=== PATIENT | female | born 1995 | race Caucasian/White ===

== ENCOUNTER 2020-03-19 21:03 | Inpatient (IN) ==
[2020-03-19] MEDS ORDERED: miSOPROStoL 50 MCG TAB PO PRN (21:59)
[2020-03-19] MEDS ORDERED: OXYTOCIN 30 UNITS/500 ML BAG IV PRN ×2 (21:59→22:09)
--- NOTE | 2020-03-19 22:04 | History & Physical Report ---
Date of Service March 19, 2020 Assessment & Plan (1) Supervision of normal first : - heart rate seeing category 1 with accelerations and variability -Rupture of membranes with minimal uterine activity -Discussed with patient and her -Recommend Cytotec 50 mcg p.o. every 4 hours as needed to induce contractions -All questions answered. History of Present Illness Chief Complaint: ROM Primary Care Provider: NO PCP The patient is a 24-year-old 1 para 0, EDC of 25 March, at 39+ weeks gestational age who presents to labor and delivery with spontaneous rupture of membranes. Patient states membranes ruptured at approximately 2000 hrs. on day of admission. Patient has been having prodromal contractions for the last 12 hours. The patient has had a benign course. Her blood type is O-, antibody negative, she received RhoGam on 12 January, hepatitis B, rubella immune, negative cystic fibrosis and SMA screen, negative cell free DNA screen, normal 1 hour Glucola x2, and a negative third trimester beta strep culture. Allergies Allergy/AdvReac Type Severity Reaction Status Date / Time No Known Drug Allergies Allergy Verified 03/13/20 09:44 Home Medications Home Medications Medication Instructions Recorded Confirmed Type Breast pump #1 ea 12/30/19 03/13/20 Rx ferrous sulfate [iron] 325 mg PO DAILY 03/19/20 03/19/20 History vit no.[id number] 1 tab PO DAILY 03/19/20 03/19/20 History [ Vitamin] Patient History Medical History (Updated 01/20/20 @ 11:30 by Lev Jo Jr, MD, FACOG) ADHD Encounter for anatomic survey No significant past medical history Varicella vaccine Family History (Updated 08/19/19 @ 13:14 by Kecia Castillo) Mother Schizo affective schizophrenia Aneurysm Grandmother Aneurysm Aunt Aneurysm Bipolar disorder Diabetes Father Mental illness in member of household Uncle Liver failure Social History (Updated 08/19/19 @ 13:33 by Kecia Castillo) Preferred Language: Filipino Communication Ability: Effective Strike Plate Attacher Required: No Beliefs That Will Affect Care: None marital status: marital status details: Eldon Berg (28) [phone] Current Living Situation: Spouse Current Living Situation Comment: lives with spouse and 1 dog current occupational status: employed 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 [employer] Feels Safe at Home: Yes Safety Concerns: Feels Safe At This Time Smoking Status: Former smoker Second Hand Exposure: No ; Hx Alcohol Use: No Hx Substance Use: No Physical Exam Constitutional: WD/WN, vitals as above Respiratory: Auscultation: lungs clear to auscultation bilaterally Cardiovascular: RRR, no murmur, no edema Extremities: no calf tenderness Gastrointestinal (Abdomen): Gravid, vertex, positive heart tones, estimated weight of 7 1/2 pounds Genitourinary: OB Exam Monitor Tracing: + category I and + normal FHT variability : SSE- (+) fern, (+) NTZ, FT/50/-2 Results & Data Vital Signs (Past 12 Hours) Vital Signs Temp Pulse Resp BP 03/19/20 21:17 98.6 F 88 18 117/71 03/19/20 21:16 98.6 F 18 Coding Level of Care Code None Diagnoses Supervision of normal first Z34.00
[2020-03-19 22:27] LABS: Hematocrit (blood only) 35.9 % (37-47); Hemoglobin 12.3 g/dL (12.0-16.0); Mean Corpuscular Hemoglobin 32.8 pg (25-34); Mean Corpuscular Volume 95.7 fL (80-100); Mean Platelet Volume 10.5 fL (7.4-10.4); Platelet Count 203 K/uL (130-400); RDW Coefficient of Variation 14.6 % (11.5-14.5); RDW Standard Deviation 50.6 fL (36.4-46.3); Red Blood Count 3.75 M/uL (4.2-5.4); White Blood Count 7.46 K/uL (4.8-10.8)
[2020-03-19 22:28] LABS: Mean Corpuscular Hgb Conc 34.3 g/dL (32-36)
[2020-03-20] MEDS: LACTATED RINGER'S 1,000 ML IV PRN ×2 (03:01→04:04)
[2020-03-20] MEDS ORDERED: BUPIVACAINE 0.25% 30 ML VIAL ONE (03:04)
[2020-03-20] MEDS ORDERED: fentaNYL citrate 100 MCG/2 ML VIAL ONE (03:04)
[2020-03-20] MEDS ORDERED: ePHEDrine sulfate 50 MG/ML AMP ONE (03:04)
[2020-03-20] MEDS ORDERED: fentaNYL 2MCG/ML ROPIV 1.25MG/ML 100 ML BAG EPI ONE (03:05)
[2020-03-20] MEDS ORDERED: NALOXONE HCL 0.4 MG/1 ML VIAL/CARP IV PRN (03:49)
[2020-03-20] MEDS ORDERED: NALOXONE HCL 1 MG in SODIUM CHLORIDE 0.9% 1000ML 1,000 ML IV PRN (03:49)
[2020-03-20] MEDS ORDERED: DiphenhydrAMINE HCL 50 MG/ML VIAL IV PRN (03:49)
[2020-03-20] MEDS ORDERED: fentaNYL 2MCG/ML ROPIV 1.25MG/ML 100 ML BAG EPI PRN (03:49)
[2020-03-20] MEDS ORDERED: ONDANSETRON INJ 2 MG/ML 2 ML VIAL IV PRN (03:49)
[2020-03-20] MEDS ORDERED: ePHEDrine sulfate 50 MG/ML AMP IV PRN (03:49)
[2020-03-20] MEDS ORDERED: NALBUPHINE HCL INJ 10 MG/ML AMP IV PRN (03:49)
--- NOTE | 2020-03-20 03:55 | Anesthesiology Consultation ---
Date of Service March 20, 2020 Assessment & Plan Chart Review Chart Review: Patient NOT seen in Pre Admission Testing and Acceptable Risk for Labor Epidural Consults Requested none ASA ASA2 Proposed Anesthesia Anesthesia Type: Labor Epidural and CSE Risk / Benefits Reviewed With: PT / POA / Parent / Guardian, Accepts Plan and Informed Consent Obtained History Height/Weight Height: 5 ft 5 in Weight: 63.503 kg Allergies Allergy/AdvReac Type Severity Reaction Status Date / Time No Known Drug Allergies Allergy Verified 03/13/20 09:44 Medications Home Medications Medication Instructions Recorded Confirmed Last Taken Breast pump #1 ea 12/30/19 03/13/20 Unknown ferrous sulfate [iron] 325 mg PO DAILY 03/19/20 03/19/20 03/18/20 vit no.[id number] 1 tab PO DAILY 03/19/20 03/19/20 03/18/20 [ Vitamin] Active Medications Generic Name Dose Route Start Last Admin Trade Name Freq PRN Reason Stop Dose Admin Lactated Ringer's 1,000 mls @ 125 mls/hr 03/19/20 21:59 03/20/20 03:01 Lr IV 03/21/20 21:58 999 mls/hr .Q8H PRN Administration L&D Protocol Protocol Misoprostol 50 mcg 03/19/20 21:59 03/19/20 22:48 Cytotec PO 04/18/20 21:58 50 mcg Q4H PRN Administration contractions NPO Date Last Intake of Fluids: 03/20/20 Time Last Intake of Fluids: 02:00 Date Last Intake of Solids: 03/19/20 Time Last Intake of Solids: 19:30 Past Medical History Medical History ADHD Encounter for anatomic survey No significant past medical history Varicella vaccine Exercise / Class Metabolic Activity II 4-5 Yardwork/Stairs/Walk up hill Past Family History Family History Mother Schizo affective schizophrenia Aneurysm Grandmother Aneurysm Aunt Aneurysm Bipolar disorder Diabetes Father Mental illness in member of household Uncle Liver failure Past Anesthesia History No Hx of Anesthesia Complications and No Family Hx of Anesthesia Complications History of PONV No Hx of PONV and No Hx of Motion Sickness Social History Smoking Status: Former smoker Hx Alcohol Use: No Hx Substance Use: No Review of Systems no chest pain or sob Physical Exam Vital Signs Last Vital Signs Temp 37.0 C 03/20/20 01:08 Pulse 109 H 03/20/20 03:53 Resp 18 03/20/20 02:02 BP 118/71 03/20/20 01:09 Pulse Ox 100 03/20/20 03:53 ENMT Mouth: no TMJ abnormality Thyromental Distance: > or= 3.5 Finger Breadths Mallampati Class: II Neck normal visual inspection Respiratory normal respiratory effort Auscultation: lungs clear to auscultation bilaterally Cardiovascular Rate/Rhythm: regular rate and regular rhythm Musculoskeletal Spine: normal cervical ROM Neurologic moves all extremities Psychiatric Orientation: alert and oriented x 3 Testing Laboratory Results 03/19/20 22:15
--- NOTE | 2020-03-20 07:13 | History & Physical Report ---
Date of Service March 19, 2020 History of Present Illness Primary Care Provider: NO PCP Allergies Allergy/AdvReac Type Severity Reaction Status Date / Time No Known Drug Allergies Allergy Verified 03/13/20 09:44 Home Medications Home Medications Medication Instructions Recorded Confirmed Type Breast pump #1 ea 12/30/19 03/13/20 Rx ferrous sulfate [iron] 325 mg PO DAILY 03/19/20 03/19/20 History vit no.[id number] 1 tab PO DAILY 03/19/20 03/19/20 History [ Vitamin] Patient History Medical History ADHD Encounter for anatomic survey No significant past medical history Varicella vaccine Family History Mother Schizo affective schizophrenia Aneurysm Grandmother Aneurysm Aunt Aneurysm Bipolar disorder Diabetes Father Mental illness in member of household Uncle Liver failure Social History (Updated 08/19/19 @ 13:33 by Kecia Castillo) Preferred Language: Ukrainian Communication Ability: Effective Appeals Referee Required: No Beliefs That Will Affect Care: None marital status: marital status details: Eldon Berg (28) [phone] Current Living Situation: Spouse Current Living Situation Comment: lives with spouse and 1 dog current occupational status: employed 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 Feels Safe at Home: Yes Safety Concerns: Feels Safe At This Time Smoking Status: Former smoker Second Hand Exposure: No ; Hx Alcohol Use: No Hx Substance Use: No Results & Data Vital Signs (Past 12 Hours) Vital Signs Temp Pulse Resp BP 03/19/20 22:49 80 123/74 03/19/20 22:00 18 03/19/20 21:17 98.6 F 88 18 117/71 03/19/20 21:16 98.6 F 18 Coding Level of Care Code None
--- NOTE | 2020-03-20 07:16 | Labor Progress Brief Note ---
Date of Service March 20, 2020 Subjective Reason For Note: Routine Evaluation comfortable after epidural Assessment & Plan (1) Supervision of normal first : - tracing Cat II, moderate variability - no cervical change for 2 hours - will start pitocin augmentation Physical Exam Genitourinary: Cervix: 6-7/100/(+)1 Results & Data Vital Signs (Past 12 Hours) Vital Signs Temp Pulse Resp BP Pulse Ox 03/20/20 07:08 104 H 92 03/20/20 07:03 96 H 100 03/20/20 07:01 90 112/71 03/20/20 07:00 18 03/20/20 06:58 91 H 100 03/20/20 06:53 81 99 03/20/20 06:48 84 99 03/20/20 06:44 90 120/70 03/20/20 06:43 91 H 100 03/20/20 06:38 87 100 03/20/20 06:33 93 H 100 03/20/20 06:30 85 18 119/67 03/20/20 06:28 101 H 100 03/20/20 06:23 88 100 03/20/20 06:18 90 100 03/20/20 06:14 89 123/72 03/20/20 06:13 88 100 03/20/20 06:08 94 H 99 03/20/20 06:03 101 H 98 03/20/20 06:00 99.0 F 18 03/20/20 05:59 96 H 109/59 L 03/20/20 05:58 107 H 99 03/20/20 05:53 86 97 03/20/20 05:48 91 H 97 03/20/20 05:46 89 106/55 L 03/20/20 05:43 89 98 03/20/20 05:38 96 H 98 03/20/20 05:33 95 H 100 03/20/20 05:30 18 03/20/20 05:29 95 H 90/58 L 03/20/20 05:28 107 H 98 03/20/20 05:27 104 H 90 03/20/20 05:23 105 H 97 03/20/20 05:18 84 96 03/20/20 05:14 83 104/56 L 03/20/20 05:13 86 97 03/20/20 05:08 85 96 03/20/20 05:03 87 97 03/20/20 05:00 88 113/59 L 89 L 03/20/20 04:58 85 97 03/20/20 04:53 91 H 96 03/20/20 04:48 93 H 97 03/20/20 04:45 90 112/66 03/20/20 04:43 82 97 03/20/20 04:38 86 96 03/20/20 04:33 97 H 97 03/20/20 04:29 99.0 F 18 03/20/20 04:28 94 H 117/66 98 03/20/20 04:25 18 03/20/20 04:23 95 H 98 03/20/20 04:22 88 118/62 03/20/20 04:20 91 H 18 122/66 03/20/20 04:18 91 H 125/70 99 03/20/20 04:16 88 18 116/62 03/20/20 04:14 89 18 123/70 03/20/20 04:13 89 119/58 L 98 03/20/20 04:12 18 03/20/20 04:11 99 H 186/81 H 88 L 03/20/20 04:08 110 H 127/87 99 03/20/20 04:03 111 H 100 03/20/20 03:58 104 H 98 03/20/20 03:53 109 H 100 03/20/20 02:02 18 03/20/20 01:09 82 118/71 03/20/20 01:08 98.6 F 18 03/19/20 23:58 98.2 F 18 03/19/20 23:30 18 03/19/20 23:00 18 03/19/20 22:49 98.2 F 80 123/74 03/19/20 22:42 18 03/19/20 22:00 18 03/19/20 21:17 98.6 F 88 18 117/71 03/19/20 21:16 98.6 F 18 Coding Level of Care Code None Diagnoses Supervision of normal first Z34.00
--- NOTE | 2020-03-20 11:14 | Delivery Summary ---
Vaginal Delivery Summary Date of Service March 20, 2020 Vaginal Delivery Summary Vaginal Delivery Summary: Pre-delivery diagnoses: 24yo @ 39 2/7, spontaneous labor, Rh negative Post-delivery diagnoses: same Procedure: spontaneous vaginal delivery Surgeon: Silvia Milton DO Complications: none Findings: Viable female . Apgars: 8/9. Weight pending, please see nursery records Estimated blood loss: 300ml Description of delivery: The patient progressed to complete with epidural anesthesia. She then began to push. She spontaneously vaginally delivered a viable from the cephalic presentation. The head delivered in ARCELIA position. The anterior shoulder delivered, followed by the posterior shoulder and arm, followed by the body. The baby was placed on mother's abdomen and a spontaneous cry was heard. Delayed cord clamping was employed, and the cord was doubly clamped and cut. Cord blood was obtained. The placenta was delivered spontaneously intact with a 3-vessel cord. The uterus and vagina were swept of clots and debris. IV pitocin was given. The uterus became firm. The cervix, vagina, and perineum were inspected and no lacerations were noted. Excellent hemostasis was observed. The mother and baby are recovering in stable and good condition in the room. Sponge and instrument counts were correct x 2. Silvia Milton DO [facility] [place]
[2020-03-20] MEDS ORDERED: HYDROCORTISONE ACETATE 25 MG SUPP PR PRN (11:23)
[2020-03-20] MEDS ORDERED: OXYTOCIN 30 UNITS/500 ML BAG IV PRN (11:23)
[2020-03-20] MEDS ORDERED: ACETAMINOPHEN 325 MG TAB PO PRN (11:23)
[2020-03-20] MEDS ORDERED: bisacodyL 10 MG SUPP PR PRN (11:23)
[2020-03-20] MEDS ORDERED: DIPHTHERIA/TETANUS/PERTUSSIS 0.5 ML SYR/VIAL IM ONE (11:23)
[2020-03-20] MEDS ORDERED: SUPERCREAM 0.870% 15 GM JAR EXT PRN (11:23)
[2020-03-20] MEDS ORDERED: BENZOCAINE 20% AER SPR 82.5 GM CAN EXT PRN (11:23)
--- NOTE | 2020-03-20 12:41 | Anesthesia Procedure Note ---
Date of Service March 20, 2020 Anesthesia Post Epidural Note Vital Signs Vital Signs: Temp Pulse Resp BP Pulse Ox 36.7 C 100 H 18 118/80 80 L 03/20/20 08:01 03/20/20 12:26 03/20/20 12:11 03/20/20 12:26 03/20/20 11:00 Pain Intensity Abdomen: Pain Intensity: 10 Notes Mental Status: alert / awake / arousable and participated in evaluation Nausea / Vomiting: adequately controlled Pain: adequately controlled Airway Patency, RR, SpO2: stable & adequate BP & HR: stable & adequate Hydration State: stable & adequate Neuraxial Anesthesia: was administered and sensory block is resolving Anesthetic Complications: no major complications apparent and Pt Satisfied with anesthetic care Epidural: Removed without complications and With tip intact Notes: Epidural site clean, dry and intact. No signs of edema, erythema or bruising at insertion site. Pt instructed to request anesthesia if she has residual lower extremity numbness or if she develops lower extremity pain or weakness, back pain or headache.
[2020-03-20] MEDS: IBUPROFEN 600 MG TAB PO PRN ×3 (13:53→23:57)
[2020-03-20] MEDS: DOCUSATE SODIUM 100 MG CAP PO SCH (20:20)
[2020-03-21] MEDS: IBUPROFEN 600 MG TAB PO PRN ×5 (03:39→19:56)
--- NOTE | 2020-03-21 05:52 | Obstetrical Progress Note ---
Date of Service <Ben Chapman MD - Last Filed: 03/21/20 07:12> March 21, 2020 Assessment & Plan <Ben Chapman MD - Last Filed: 03/21/20 07:12> (1) Supervision of normal first : PPD#1: - doing well, ambulating well, tolerating oral intake - continue routine care - after discharge will have 6 week follow-up with Dr. Milton - will need for Rhogam as baby is Rh+ (2) Need for rhogam due to Rh negative mother: Subjective <Ben Chapman MD - Last Filed: 03/21/20 07:12> Alyssa Berg is a 24 y/o female ; PPD #1 following spontaneous vaginal delivery at 39 weeks; doing well this morning; moderate abdominal cramping/pain; voiding well; tolerating meals overnight; and able to ambulate some; some persistent spotting with intermittent improvement this morning. Review of Systems Constitutional: denies fever; chills; sweats; headache Respiratory: denies shortness of breath, difficulty breathing Cardiac: denies chest pain; palpitations; chest pressure Breast: denies breast pain : denies dysuria Physical Exam <Ben Chapman MD - Last Filed: 03/21/20 07:12> General: alert; oriented; no acute distress Cardiac: RRR; no m/g/r Respiratory: CTAB a/p; no wheezes/rales/rhonchi; no increased work of breathing; symmetrical chest rise; no respiratory distress Abdomen: soft; NT/ND; bowel sounds positive Uterus: uterine fundus firm; palpable 1cm below umbilicus Lower extrem: no lower extremity edema or swelling; no deep calf pain; Katherine's sign negative b/l Results & Data <Ben Chapman MD - Last Filed: 03/21/20 07:12> Vital Signs (Past 12 Hours) Vital Signs Temp Pulse Resp BP Pulse Ox 03/21/20 03:40 36.8 C 72 18 120/77 03/20/20 23:50 36.8 C 76 18 128/79 03/20/20 19:10 36.7 C 82 20 111/69 96 Medications Administered Current Inpatient Medications Acetaminophen (Tylenol) 650 mg PO Q6H PRN PRN Reason: Pain/ALICEA/Fever Stop: 04/19/20 11:22 Benzocaine (Dermoplast Pain Relieving [place]) 1 appln EXT PRN PRN PRN Reason: Perineal Discomfort Stop: 04/19/20 11:22 Last Admin: 03/20/20 13:53 Dose: 82.5 appln Documented by: Bisacodyl (Dulcolax) 10 mg FL DAILY PRN PRN Reason: No BM on 2nd post- day Stop: 04/19/20 11:22 Cocaine HCl (Supercream 0.870%) 1 gm EXT BID PRN PRN Reason: Hemorrhoidal Inflammation Stop: 04/03/20 11:22 Last Admin: 03/20/20 13:53 Dose: 1 gm Documented by: Docusate Sodium (Colace) 100 mg PO DAILY@08,21 CASH Stop: 04/19/20 20:59 Last Admin: 03/20/20 20:20 Dose: 100 mg Documented by: Hydrocortisone (Anusol Hc) 25 mg FL BID PRN PRN Reason: Hemorrhoidal Inflammation Stop: 04/19/20 11:22 Lactated Ringer's (Lr) 1,000 mls @ 125 mls/hr IV .Q8H PRN; Protocol PRN Reason: L&D Protocol Stop: 03/21/20 21:58 Last Admin: 03/20/20 04:04 Dose: 125 mls/hr Documented by: Oxytocin (Pitocin) 30 units in 500 mls @ 333.333 mls/hr IV .Q1H30M PRN; Protocol PRN Reason: Bleeding Control Stop: 04/18/20 21:58 Oxytocin (Pitocin) 30 units in 500 mls @ 1 mls/hr IV .Q24H PRN; Protocol PRN Reason: Labor Induction/Augmentation Stop: 03/21/20 22:08 Last Admin: 03/20/20 07:23 Dose: 0.06 units/hr, 1 mls/hr Documented by: Oxytocin (Pitocin) 30 units in 500 mls @ 333.333 mls/hr IV .Q1H30M PRN; Protocol PRN Reason: Bleeding Control Stop: 04/19/20 11:22 Ibuprofen (Motrin) 600 mg PO Q4H PRN PRN Reason: Pain/ALICEA/Cramping/Fever Stop: 04/19/20 11:22 Last Admin: 03/21/20 03:39 Dose: 600 mg Documented by: Misoprostol (Cytotec) 50 mcg PO Q4H PRN PRN Reason: contractions Stop: 04/18/20 21:58 Last Admin: 03/19/20 22:48 Dose: 50 mcg Documented by: Trish Multivit/Social Services Manager/Iron/Folic Ac ( Vitamin) 1 tab PO DAILY@08 CASH Stop: 04/20/20 07:59 <Silvia Milton DO - Last Filed: 03/21/20 07:39> Co-Signing Physician Notes Resident Physician Supervision Note: I interviewed and examined the patient. Discussed with Dr. Chapman and agree with findings and plan as documented in the note. Any exceptions or clarifications are listed here: PPD#1 doing well, no concerns. Staying until tomorrow. Documented By: Silvia Milton DO Resident Activity Tracking <Ben Chapman MD - Last Filed: 03/21/20 07:12> Resident Involvement: Resident Care Provided Care Provided: OB Delivery
[2020-03-21 07:31] LABS: Hematocrit (blood only) 36.9 % (37-47); Hemoglobin 12.5 g/dL (12.0-16.0); Mean Corpuscular Hgb Conc 33.9 g/dL (32-36); Mean Corpuscular Volume 97.4 fL (80-100); Mean Platelet Volume 10.2 fL (7.4-10.4); Platelet Count 173 K/uL (130-400); RDW Standard Deviation 53.4 fL (36.4-46.3); Red Blood Count 3.79 M/uL (4.2-5.4); White Blood Count 11.87 K/uL (4.8-10.8)
[2020-03-21] MEDS: PRENATAL VITAMIN 1 TAB PO SCH (08:27)
[2020-03-21] MEDS: DOCUSATE SODIUM 100 MG CAP PO SCH ×2 (08:27→19:56)
--- NOTE | 2020-03-22 05:43 | Obstetrical Progress Note ---
Date of Service <Ben Chapman MD - Last Filed: 03/22/20 06:42> March 22, 2020 Assessment & Plan <Ben Chapman MD - Last Filed: 03/22/20 06:42> (1) Supervision of normal first : PPD#2: - doing well, ambulating well, tolerating oral intake - continue routine care - after discharge will have 6 week follow-up with Dr. Milton - will need Rhogam as baby is Rh+ Subjective <Ben Chapman MD - Last Filed: 03/22/20 06:42> Alyssa Berg is a 24 y/o female ; PPD #2 following spontaneous vaginal delivery at 39 weeks; doing well this morning; minimal abdominal cramping/pain; voiding well; tolerating meals overnight; and able to ambulate some; some persistent spotting with intermittent improvement this morning. Review of Systems Constitutional: denies fever; chills; sweats; headache Respiratory: denies shortness of breath, difficulty breathing Cardiac: denies chest pain; palpitations; chest pressure Breast: denies breast pain : denies dysuria Physical Exam <Ben Chapman MD - Last Filed: 03/22/20 06:42> General: alert; oriented; no acute distress Cardiac: RRR; no m/g/r Respiratory: CTAB a/p; no wheezes/rales/rhonchi; no increased work of breathing; symmetrical chest rise; no respiratory distress Abdomen: soft; NT/ND; bowel sounds positive Uterus: uterine fundus firm; palpable 2cm below umbilicus Lower extrem: no lower extremity edema or swelling; no deep calf pain; Katherine's sign negative b/l Results & Data <Ben Chapman MD - Last Filed: 03/22/20 06:42> Vital Signs (Past 12 Hours) Vital Signs Temp Pulse Resp BP 03/21/20 23:30 36.7 C 71 18 123/79 03/21/20 19:55 36.9 C 80 18 127/79 Laboratory Results 03/22/20 03/21/20 03/21/20 Range/Units 05:32 07:14 07:14 WBC 11.87 H (4.8-10.8) K/uL RBC 3.79 L (4.2-5.4) M/uL Hgb 12.0 12.5 (12.0-16.0) g/dL Hct 35.2 L 36.9 L (37-47) % MCV 97.4 (80-100) fL MCH 33.0 (25-34) pg MCHC 33.9 (32-36) g/dL RDW Std Deviation 53.4 H (36.4-46.3) fL RDW Coeff of Janice 15.0 H (11.5-14.5) % Plt Count 173 (130-400) K/uL MPV 10.2 (7.4-10.4) fL Blood Type O Negative Antibody Screen NEGATIVE Screen Negative (Negative) Medications Administered Current Inpatient Medications Acetaminophen (Tylenol) 650 mg PO Q6H PRN PRN Reason: Pain/ALICEA/Fever Stop: 04/19/20 11:22 Benzocaine (Dermoplast Pain Relieving [place]) 1 appln EXT PRN PRN PRN Reason: Perineal Discomfort Stop: 04/19/20 11:22 Last Admin: 03/20/20 13:53 Dose: 82.5 appln Documented by: Bisacodyl (Dulcolax) 10 mg PA DAILY PRN PRN Reason: No BM on 2nd post- day Stop: 04/19/20 11:22 Cocaine HCl (Supercream 0.870%) 1 gm EXT BID PRN PRN Reason: Hemorrhoidal Inflammation Stop: 04/03/20 11:22 Last Admin: 03/20/20 13:53 Dose: 1 gm Documented by: Docusate Sodium (Colace) 100 mg PO DAILY@08,21 CASH Stop: 04/19/20 20:59 Last Admin: 03/21/20 19:56 Dose: 100 mg Documented by: Hydrocortisone (Anusol Hc) 25 mg [place] BID PRN PRN Reason: Hemorrhoidal Inflammation Stop: 04/19/20 11:22 Oxytocin (Pitocin) 30 units in 500 mls @ 333.333 mls/hr IV .Q1H30M PRN; Protocol PRN Reason: Bleeding Control Stop: 04/18/20 21:58 Oxytocin (Pitocin) 30 units in 500 mls @ 333.333 mls/hr IV .Q1H30M PRN; Protocol PRN Reason: Bleeding Control Stop: 04/19/20 11:22 Ibuprofen (Motrin) 600 mg PO Q4H PRN PRN Reason: Pain/ALICEA/Cramping/Fever Stop: 04/19/20 11:22 Last Admin: 03/21/20 19:56 Dose: 600 mg Documented by: Misoprostol (Cytotec) 50 mcg PO Q4H PRN PRN Reason: contractions Stop: 04/18/20 21:58 Last Admin: 03/19/20 22:48 Dose: 50 mcg Documented by: Prenat Multivit/[place]/Iron/Folic Ac ( Vitamin) 1 tab PO DAILY@08 CASH Stop: 04/20/20 07:59 Last Admin: 03/21/20 08:27 Dose: 1 tab Documented by: <Lisa Lemon MD, FACOG - Last Filed: 03/22/20 07:37> Co-Signing Physician Notes Resident Physician Supervision Note: I interviewed and examined the patient. Discussed with Dr. Chapman and agree with findings and plan as documented in the note. Any exceptions or clarifications are listed here: [None] Documented By: Lisa Lemon MD, FACOG Resident Activity Tracking <Ben Chapman MD - Last Filed: 03/22/20 06:42> Resident Involvement: Resident Care Provided Care Provided: OB Delivery
[2020-03-22 05:53] LABS: Hematocrit (blood only) 35.2 % (37-47)
[2020-03-22] MEDS: IBUPROFEN 600 MG TAB PO PRN (08:09)
[2020-03-22] MEDS: DOCUSATE SODIUM 100 MG CAP PO SCH (08:13)
[2020-03-22] MEDS: PRENATAL VITAMIN 1 TAB PO SCH (08:13)
== END 2020-03-22 16:35 | disposition home or self-care (01) | DRG 807 ==
LOC: OPB 21:03 → 4S1 21:05 → 4S2 03-20 14:11